=== PATIENT | female | born 1975 | race Caucasian/White ===

== ENCOUNTER 2025-01-10 13:39 | Outpatient (CLI) | payer OTHER, MEDICAID ==
--- NOTE | 2025-01-10 15:17 | RADIOLOGY REPORT ---
CLINICAL HISTORY: UNILATERAL PRIMARY OSTEOARTHRITIS, RIGHT KNEE,PAIN IN RIGHT KNEE COMPARISON: None TECHNIQUE: Multisequence multiplanar MRI images of the right knee were obtained without contrast. FINDINGS: Cruciate ligaments: ACL and PCL are intact. Extensor mechanism: Quadriceps mechanism and patellar tendon are intact. Collateral ligaments: Medial and lateral collateral ligaments are intact and otherwise unremarkable. Menisci: Horizontal tear involving the posterior horn and body of the lateral meniscus with extension to the tibial articular surface. Medial meniscus is intact. Cartilage: Moderate chondral fissuring in the lateral patellar facet near the median ridge with adjacent mild subchondral cystic change. Chondral thinning in the medial and lateral compartments, greater in the lateral compartment, where there are areas of near full-thickness chondral loss. Bones: No acute fracture or focal marrow contusion. Joint fluid: No significant joint effusion. Other: Small popliteal cyst. IMPRESSION: 1. Horizontal tear of the body and posterior horn of the lateral meniscus. 2. Chondromalacia as described above, greatest in the lateral and patellofemoral compartments. 3. Additional findings as described above.
== END 2025-01-10 23:59 | disposition home or self-care (01) ==
LOC: MRI02 13:39
PROVIDERS: ATTEND Family Medicine Sports Medicine
DX: S83.281A Other tear of lateral meniscus, current injury, right knee, initial encounter (principal); M25.561 Pain in right knee; M17.11 Unilateral primary osteoarthritis, right knee; X58.XXXA Exposure to other specified factors, initial encounter; Y93.89 Activity, other specified; Y92.89 Other specified places as the place of occurrence of the external cause; Y99.8 Other external cause status; M22.41 Chondromalacia patellae, right knee; M71.21 Synovial cyst of popliteal space [Baker], right knee
CPT/HCPCS: 73721